=== PATIENT | male | born 1990 | race Caucasian/White ===

== ENCOUNTER 2020-12-31 17:55 | Emergency (ER) | payer OTHER ==
[~2020-12-31] VITALS: Ht 162.6 cm; Wt 65.8 kg
[2020-12-31 18:06] VITALS: BP_SYST 113
== END 2020-12-31 18:25 ==
LOC: SED 17:55
DX: Z02.83 Encounter for blood-alcohol and blood-drug test (principal)
CPT/HCPCS: 99283